=== PATIENT | female | born 1950 | race Caucasian/White ===

== ENCOUNTER 2022-12-31 17:44 | Inpatient (IN) | payer OTHER ==
[~2022-12-31] VITALS: Ht 172.7 cm; Wt 77.1 kg
[2022-12-31] MEDS ORDERED: IPRATROPIUM NEB FS 0.5 MG/2.5 ML AMPUL.NEB ONE (17:58)
[2022-12-31] MEDS ORDERED: ALBUTEROL FS 2.5 MG/3 ML VIAL.NEB ONE (17:58)
[2022-12-31] MEDS ORDERED: Magnesium 1GM/D5W 100ML PREMIX 200 ML IV ONE (18:00)
[2022-12-31] MEDS ORDERED: ALBUTEROL FS 2.5 MG/3 ML VIAL.NEB CONTNEB ONE (18:00)
[2022-12-31] MEDS ORDERED: methylPREDNISolone SOD SUCC 125 MG/2ML VIAL IV ONE (18:00)
[2022-12-31] MEDS ORDERED: IPRATROPIUM NEB FS 0.5 MG/2.5 ML AMPUL.NEB NEB ONE (18:00)
--- NOTE | 2022-12-31 18:00 | NUR ---
[id number] FOR SOB. 85% 2LNC ON SCENE, 95% 15L NRB ON ARRIVAL. PLACED IN BED, NON VERBAL, DYSPNEIC RR- 30 SATURATING AT 97% WITH 15LIT O2 NRB.
--- NOTE | 2022-12-31 18:04 | NUR ---
RESP. TECH AT BEDSIDE
--- NOTE | 2022-12-31 18:05 | NUR ---
TECH AT BEDSIDE FOR EKG
[2022-12-31] MEDS ORDERED: ACET-868 PO (18:09)
[2022-12-31] MEDS ORDERED: LOSA25TA27 PO (18:09)
[2022-12-31] MEDS ORDERED: FLUT1BLS6 INH (18:09)
[2022-12-31] MEDS ORDERED: ENOX40DI SQ (18:09)
[2022-12-31] MEDS ORDERED: CRAN425C6 PO (18:09)
[2022-12-31] MEDS ORDERED: ATOR10TA PO (18:09)
[2022-12-31] MEDS ORDERED: CARV3.122 PO (18:09)
[2022-12-31] MEDS ORDERED: ESTR42.5 VG (18:09)
[2022-12-31] MEDS ORDERED: ONDA4TAB5 PO (18:09)
[2022-12-31] MEDS ORDERED: BISA10SU11 RC (18:09)
[2022-12-31] MEDS ORDERED: NA P133E RC (18:09)
[2022-12-31] MEDS ORDERED: MAGN400O6 PO (18:09)
[2022-12-31] MEDS ORDERED: HYDR-3980 PO (18:09)
[2022-12-31] MEDS ORDERED: IPRA3AMP23 IH (18:09)
[2022-12-31] MEDS ORDERED: ASPI-1420 PO (18:09)
[2022-12-31] MEDS ORDERED: LIDO1ADH82 TP (18:09)
[2022-12-31] MEDS ORDERED: DOCU-141 PO (18:09)
[2022-12-31] MEDS ORDERED: Magnesium 1GM/D5W 100ML PREMIX 100 ML IV ONE ×2 (18:12→19:23)
[2022-12-31] MEDS ORDERED: methylPREDNISolone SOD SUCC 125 MG/2ML VIAL ONE (18:12)
--- NOTE | 2022-12-31 18:15 | NUR ---
pharmaceutical laboratory technician at bedside
[2022-12-31] MEDS ORDERED: ACETAMINOPHEN 650 MG/SUPP.RECT RC ONE ×2 (18:28→18:30)
[2022-12-31 18:59] LABS: ABG BASE EXCESS 0.2 mmol/L; ABG PCO2 177.3 mmHg (35.0-45.0); ABG PH 6.945 (7.350-7.450); ABG PO2 65.9 mmHg (75.0-100.0); COHb 3.3 % (0.5-1.5); MetHb 0.3 % (0.0-1.5); O2Hb 76.4 % (94.0-97.0); SITE, ABG Left Radial
--- NOTE | 2022-12-31 19:01 | NUR ---
swab for covid19 and rapid influenza sen to lab
[2022-12-31] MEDS ORDERED: PROPOFOL 100 ML ONE (19:04)
--- NOTE | 2022-12-31 19:09 | NUR ---
PATIENT INTUBATED BY MD WITH DIPRIVAN 100MG IV, ET-TUBE 7.5 AT 23LIP ATTACHED TO VENTILATOR WITH SETTING AC/VC FIO2- 100, VT- 550, RATE- 20, PEEP- 5 SATURATING AT 100%.
[2022-12-31] MEDS ORDERED: PROPOFOL 100 ML IV ONE (19:30)
[2022-12-31] MEDS ORDERED: PROPOFOL 200 MG/20 ML VIAL IV ONE (19:30)
[2022-12-31 19:47] LABS: CARBON DIOXIDE 32 mmol/L (21-32); CHLORIDE 99 mmol/L (98-107); GLUCOSE 194 mg/dL (74-106); POTASSIUM 4.6 mmol/L (3.5-5.1); SODIUM SERUM 135 mmol/L (136-145)
[2022-12-31 19:48] LABS: ALKALINE PHOSPHATASE 80 U/L (46-116); ASPARTATE AMINOTRANSFERASE 5 U/L (15-37); BILIRUBIN,DIRECT 0.1 mg/dL (0.0-0.2); BILIRUBIN,TOTAL 0.2 mg/dL (0.2-1.0); CALCIUM, SERUM 9.9 mg/dL (8.5-10.1); CREATININE 0.9 mg/dL (0.6-1.3); UREA NITROGEN, BLOOD 18 mg/dL (7-18)
[2022-12-31 19:49] LABS: ALANINE AMINOTRANSFERASE 27 U/L (12-78); ALBUMIN 3.3 g/dL (3.4-5.0)
[2022-12-31 19:59] LABS: BILIRUBIN,URINE NEGATIVE (NEGATIVE); COLOR,URINE YELLOW (YELLOW); LEUKOCYTE ESTERASE ,URINE 2+ (NEGATIVE); NITRITE, URINE NEGATIVE (NEGATIVE); PH,URINE 5.5 (5.0-8.0); PROTEIN,URINE 2+ mg/dl (NEGATIVE); UGLUCOSE NEGATIVE (NEGATIVE); UROBILINOGEN,URINE 0.2 EU/dL (0.2)
[2022-12-31] MEDS ORDERED: IV NS 0.9% 1,000 ML BAG IV ONE ×2 (20:00→20:30)
--- NOTE | 2022-12-31 20:00 | NUR ---
BED 255
[2022-12-31 20:07] LABS: BASOPHILS % (AUTO) 0.2 % (0.0-2.0); EOSINOPHILS % (AUTO) 1.3 % (0.0-6.0); HEMATOCRIT 42 % (33-45); HEMOGLOBIN 13.5 g/dL (11.5-14.8); LYMPHOCYTES # (AUTO) 4.3 K/uL (0.8-4.8); LYMPHOCYTES % (AUTO) 26.6 % (20.0-44.0); MEAN CORPUSCULAR HGB CONC 32 g/dl (31.0-36.0); MEAN CORPUSCULAR VOLUME 91 fL (82-100); MONOCYTES # (AUTO) 1.9 K/uL (0.1-1.30); MONOCYTES % (AUTO) 11.7 % (2.0-12.0); NEUTROPHILS # (AUTO) 9.8 K/uL (1.8-8.9); NEUTROPHILS % (AUTO) 60.2 % (43.0-81.0); PLATELET COUNT (AUTO) 384 K/uL (150-450); RED BLOOD CELL COUNT(AUTO) 4.58 MIL/uL (4.0-5.2); WHITE BLOOD COUNT (AUTO) 16.3 K/uL (4.3-11.0)
[2022-12-31 20:26] LABS: BACTERIA,URINE 3+ /HPF (None Seen); RBC,URINE 81-100 /HPF (0-2); SQUAMOUS EPITHELIAL CELL,UR 0-2 /HPF (None Seen); WBC,URINE 51-80 /HPF (0-3)
[2022-12-31 20:27] LABS: URINE AMORPHOUS URATE Many /HPF (None Seen)
[2022-12-31 20:31] LABS: TOTAL PROTEIN, SERUM 8.4 g/dL (6.4-8.2)
--- NOTE | 2022-12-31 20:49 | NUR ---
PAGED DR FELICIANO
--- NOTE | 2022-12-31 20:52 | NUR ---
DR ROYAL ON THE PHONE W DR FELICIANO
[2022-12-31 20:57] LABS: ABG BASE EXCESS -1.5 mmol/L; ABG PH 7.317 (7.350-7.450); ABG PO2 415.1 mmHg (75.0-100.0); COHb 2.2 % (0.5-1.5); MetHb 0.3 % (0.0-1.5); O2Hb 97.3 % (94.0-97.0); SITE, ABG Right Radial
--- NOTE | 2022-12-31 20:58 | NUR ---
PAGED ONCALL SOAKER MEAT
[2022-12-31] MEDS ORDERED: ALBUTEROL FS 2.5 MG/0.5 ML VIAL.NEB NEB PRN (21:00)
[2022-12-31] MEDS ORDERED: IPRATROPIUM NEB FS 0.5 MG/2.5 ML AMPUL.NEB NEB PRN (21:00)
[2022-12-31] MEDS ORDERED: ACETAMINOPHEN 325 MG TABLET PO PRN (21:00)
--- NOTE | 2022-12-31 21:04 | NUR ---
PAGED DANNOLOGIST ONCALL
[2022-12-31] MEDS ORDERED: NOREPINEPHRINE 8 MG in IV NS 0.9% 250 ML IV ONE (21:30)
[2022-12-31] MEDS ORDERED: Sodium Bicarbonate 50 MEQ in IV 1/2NS 1000 ML 1,000 ML IV PRN (21:30)
[2022-12-31] MEDS ORDERED: NOREPINEPHRINE 4 MG/4 ML AMPUL IV ONE (21:38)
--- NOTE | 2022-12-31 21:45 | NUR ---
COMMENCED ON LEVOPHED INF. AT 0.1MCG/KG/MIN BP- 83/57. DIPRIVAN INF. STOP
[2022-12-31] MEDS: ATORVASTATIN 10 MG TABLET PO SCH (22:00)
--- NOTE | 2022-12-31 22:00 | NUR ---
REPORT GIVEN TO ED CERTIFIED DRIVER EXAMINER ROOM 255 FOR MAGUI
[2022-12-31] MEDS ORDERED: SODIUM BICARBONATE SYR 50 MEQ/50 ML DISP.SYRIN ONE (22:01)
--- NOTE | 2022-12-31 22:09 | NUR ---
PT TRANSFERRING TO ICU ROOM 255 VIA ACLS PROTOCOL WITH RT
[2022-12-31] MEDS ORDERED: PIPERACILLIN /TAZOBACTAM 3.375 G VIAL IV ONE (22:49)
[2022-12-31] MEDS: PIPERACILLIN /TAZOBACTAM 3.375 G in IV D5W 50 ML IV SCH (22:52)
[2022-12-31] MEDS ORDERED: NOREPINEPHRINE 32 MG in IV NS 0.9% 218 ML IV PRN (23:00)
[2022-12-31] MEDS ORDERED: IV NS 0.9% 1,000 ML IV ONE (23:00)
[2022-12-31] MEDS: methylPREDNISolone SOD SUCC 40 MG/ML VIAL IV SCH (23:23)
[2022-12-31] MEDS ORDERED: ENOXAPARIN SODIUM 80 MG/0.8 ML DISP.SYRIN SQ ONE (23:30)
[2023-01-01] VITALS (83 sets, daily range): BP systolic 86–156; BP diastolic 40–111
[2023-01-01] MEDS: IV NS 0.9% 1,000 ML IV SCH ×3 (00:15→18:22)
[2023-01-01] MEDS: ALBUTEROL FS 2.5 MG/0.5 ML VIAL.NEB NEB SCH ×2 (01:04→07:34)
[2023-01-01] MEDS: IPRATROPIUM NEB FS 0.5 MG/2.5 ML AMPUL.NEB NEB SCH ×4 (01:04→23:25)
[2023-01-01] MEDS ORDERED: NOREPINEPHRINE 32 MG in IV NS 0.9% 218 ML IV PRN (01:15)
[2023-01-01] MEDS ORDERED: NOREPINEPHRINE 4 MG/4 ML AMPUL IV ONE (01:17)
[2023-01-01] MEDS: PROPOFOL 100 ML IV PRN ×4 (01:48→21:15)
[2023-01-01] MEDS ORDERED: PIPERACILLIN /TAZOBACTAM 3.375 G VIAL IV ONE (04:23)
[2023-01-01] MEDS: PIPERACILLIN /TAZOBACTAM 3.375 G in IV D5W 50 ML IV SCH ×4 (04:29→23:43)
[2023-01-01] MEDS: methylPREDNISolone SOD SUCC 40 MG/ML VIAL IV SCH ×3 (04:30→21:31)
[2023-01-01 04:31] LABS: BASOPHILS % (AUTO) 0.1 % (0.0-2.0); HEMATOCRIT 38 % (33-45); HEMOGLOBIN 12.3 g/dL (11.5-14.8); LYMPHOCYTES # (AUTO) 1.2 K/uL (0.8-4.8); LYMPHOCYTES % (AUTO) 7.7 % (20.0-44.0); MEAN CORPUSCULAR HGB CONC 33 g/dl (31.0-36.0); MEAN CORPUSCULAR VOLUME 91 fL (82-100); MONOCYTES # (AUTO) 0.5 K/uL (0.1-1.30); MONOCYTES % (AUTO) 3.3 % (2.0-12.0); NEUTROPHILS # (AUTO) 13.9 K/uL (1.8-8.9); NEUTROPHILS % (AUTO) 88.9 % (43.0-81.0); PLATELET COUNT (AUTO) 382 K/uL (150-450); WHITE BLOOD COUNT (AUTO) 15.7 K/uL (4.3-11.0)
[2023-01-01 04:42] LABS: ALBUMIN 2.7 g/dL (3.4-5.0); BILIRUBIN,TOTAL 0.3 mg/dL (0.2-1.0); POTASSIUM 3.6 mmol/L (3.5-5.1); TOTAL PROTEIN, SERUM 7.2 g/dL (6.4-8.2)
[2023-01-01] MEDS ORDERED: AMIODARONE 150 MG/3 ML VIAL IV ONE (04:55)
[2023-01-01] MEDS ORDERED: PHENYLEPHRINE 10 MG/ML VIAL ONE (04:57)
[2023-01-01] MEDS ORDERED: DIGOXIN INJ 0.5 MG/2 ML AMPUL IV ONE (05:00)
[2023-01-01] MEDS ORDERED: PHENYLEPHRINE 50 MG in IV NS 0.9% 245 ML IV PRN (05:00)
[2023-01-01] MEDS ORDERED: AMIODARONE 150 MG in IV D5W 100 ML IV ONE (05:00)
[2023-01-01] MEDS ORDERED: AMIODARONE 450 MG in IV D5W 241 ML IV PRN (05:00)
[2023-01-01 05:24] LABS: ABG BASE EXCESS -2.6 mmol/L; ABG OXYGEN SATURATION 96.7 % (92.0-98.5); ABG PCO2 42.7 mmHg (35.0-45.0); ABG PH 7.348 (7.350-7.450); ABG PO2 76.1 mmHg (75.0-100.0); AaDO2 232.4 mmHg; COHb 2.9 % (0.5-1.5); MetHb 0.2 % (0.0-1.5); O2Hb 93.7 % (94.0-97.0); SITE, ABG Right Radial
--- NOTE | 2023-01-01 06:00 | NUR ---
PT WAS ADMITTED FROM ER WITH DIAGNOSIS RESPIRATORY FAILURE, COPD EXACERBATION. PT IS INTUBATED & VENT. SETTING IS AC 20, TV 550, FIO2 50%, PEEP 5. PT WAS ON LEVOPHED DRIP, BUT BECAUSE PT WENT TO A.FIB. WITH RVR PER MD ORDER LEVOPHED DRIP WAS CHANGED TO AMAYA DRIP. ALSO STARTED AMIODARONE DRIP. RHYTHM CHANGED FROM UNCONTROLLED A. FIB. TO SR. F/C DRAINS SUFFICIENT AMT. OF CLOUDY URINE. NO BM. MEDICATED ORDERED. REPOSITIONED Q 2 H. MEDICATED ORDERED. WILL CONTINUE CLOSE MONITORING.
--- NOTE | 2023-01-01 07:36 | NUR ---
ATTEMPTED TO REACH PATIENTS NEXT OF KIN FOR CONSENT FOR PICC LINE INSERTION. NEXT OF KIN UNABLE TO BE REACHED AT THIS TIME. WILL HAVE PROVIDER SIGN INFORMED CONSENT FORM.
[2023-01-01] MEDS ORDERED: CARVEDILOL 3.125 MG TABLET PO SCH (09:00)
[2023-01-01] MEDS ORDERED: LOSARTAN POTASSIUM 25 MG TABLET PO SCH (09:00)
[2023-01-01] MEDS: ASPIRIN EC 81 MG TABLET.DR PO SCH (09:32)
[2023-01-01] MEDS: AMIODARONE HCL 200 MG TABLET NG SCH ×2 (09:32→21:31)
[2023-01-01] MEDS: ENOXAPARIN SODIUM 80 MG/0.8 ML DISP.SYRIN SQ SCH ×2 (09:37→21:32)
--- NOTE | 2023-01-01 10:15 | NUR ---
NASOGASTRIC TUBE INSERTED. LEFT NARE AT 50 CM ARCELIA. PLACEMENT CONFIRMED BY AUSCULTATION. RAMANA VALVE ATTACHED, CLAMPED FOR NOW.
--- NOTE | 2023-01-01 10:19 | NUR ---
PICC LINE INSERTED, AWAITING STAT CHEST X-RAY TO CONFIRM PLACEMENT
[2023-01-01] MEDS: LEVALBUTEROL HCL NEB 1.25 MG/0.5 ML VIAL.NEB NEB SCH ×2 (15:57→23:25)
--- NOTE | 2023-01-01 19:06 | NUR ---
HAND OFF REPORT GIVEN TO NIGHTSHIFT NURSE RR FOR CONTINUATION OF CARE.
[2023-01-01] MEDS: ATORVASTATIN 10 MG TABLET PO SCH (21:34)
--- NOTE | 2023-01-01 21:45 | NUR ---
LAB REPORTED CRITICAL VALUE TROPONIN [id number]. NOTIFIED
[2023-01-02] VITALS (77 sets, daily range): BP systolic 95–159; BP diastolic 45–89
[2023-01-02] MEDS: PROPOFOL 100 ML IV PRN ×7 (01:49→22:37)
--- NOTE | 2023-01-02 04:00 | NUR ---
DISLODGED IV AT LEFT WRIST, REMOVED. APPLIED PRESSURE DRESSING. NO BLEEDING.
[2023-01-02 04:20] LABS: BASOPHILS % (AUTO) 0.1 % (0.0-2.0); HEMATOCRIT 32 % (33-45); HEMOGLOBIN 10.4 g/dL (11.5-14.8); LYMPHOCYTES # (AUTO) 1.6 K/uL (0.8-4.8); LYMPHOCYTES % (AUTO) 11.1 % (20.0-44.0); MEAN CORPUSCULAR HGB CONC 33 g/dl (31.0-36.0); MEAN CORPUSCULAR VOLUME 89 fL (82-100); MONOCYTES # (AUTO) 1.1 K/uL (0.1-1.30); MONOCYTES % (AUTO) 7.4 % (2.0-12.0); NEUTROPHILS # (AUTO) 11.9 K/uL (1.8-8.9); NEUTROPHILS % (AUTO) 81.4 % (43.0-81.0); PLATELET COUNT (AUTO) 307 K/uL (150-450); RED BLOOD CELL COUNT(AUTO) 3.56 MIL/uL (4.0-5.2); WHITE BLOOD COUNT (AUTO) 14.7 K/uL (4.3-11.0)
[2023-01-02 04:29] LABS: CALCIUM, SERUM 8.4 mg/dL (8.5-10.1); CARBON DIOXIDE 26 mmol/L (21-32); CHLORIDE 109 mmol/L (98-107); CREATININE 0.7 mg/dL (0.6-1.3); GLUCOSE 155 mg/dL (74-106); POTASSIUM 3.7 mmol/L (3.5-5.1); SODIUM SERUM 143 mmol/L (136-145); UREA NITROGEN, BLOOD 22 mg/dL (7-18)
[2023-01-02 04:41] LABS: THYROID STIMULATING HORMONE 0.231 uIU/mL (0.358-3.74)
[2023-01-02] MEDS: IV NS 0.9% 1,000 ML IV SCH ×2 (04:59→15:11)
[2023-01-02] MEDS: methylPREDNISolone SOD SUCC 40 MG/ML VIAL IV SCH ×2 (05:29→16:04)
[2023-01-02] MEDS: PIPERACILLIN /TAZOBACTAM 3.375 G in IV D5W 50 ML IV SCH ×3 (05:30→18:58)
--- NOTE | 2023-01-02 05:30 | NUR ---
LATEST BP 120/65. HELD AMAYA AT THIS TIME. WILL CONTINUE TO MONITOR.
--- NOTE | 2023-01-02 07:05 | NUR ---
CHEMICAL INSPECTOR OPENING NOTE: RECEIVED PT. IN BED, INTUBATED AND SEDATED. MOVES EYELIDS WITH PAINFUL STIMULI. ETT - 7.5; AC - 20; VT - 500; FIO2 - 50%; PEEP - 5. NO S/S OF RESPIRATORY DISTRESS AT THIS TIME. COUNTER INSTALLER READS NSR AT THIS TIME. SKIN INTACT, MEPILEX APPLIED ON SACRUM FOR PROTECTION. HAS NG-TUBE IN THE L NARE, CLAMPED, NO GASTRIC RESIDUAL NOTED. ON GARCES CATHETER, WITH CLOUDY YELLOW URINE NOTED IN BAG. IV ACCESS ON HANNAH PICC, WITH DIPRIVAN RUNNING AT 50 MCG/KG/MIN; R WRIST #20G WITH NS RUNNING AT 100 ML/HR. IV SITE DRESSINGS C/D/I WITH NO S/S OF INFILTRATION NOTED. PT. ON SOFT BILATERAL WRIST RESTRAINTS, PALPABLE PULSES NOTED AND CAP REFILL < 3 SECS ON ALL EXTREMITIES. SAFETY MEASURES IN PLACE: BED IN LOWEST AND LOCKED POSITION, HOB ELEVATED AT 30 DEGREES, BED ALARM ON, CALL LIGHT WITHIN REACH, SIDE RAILS UP X2. WILL TURN AND REPOSITION IN BED AT LEAST Q2H. WILL CONTINUE TO MONITOR PT. FOR ANY CHANGES.
--- NOTE | 2023-01-02 08:40 | NUR ---
CREDIT REPORTER NOTE: PT. FAILED WEANING TRIAL. RESPIRATORY RATE WENT TO HIGH 40'S TO 50'S ON SIMV MODE, HR WENT TO HIGH 90'S AND BP INCREASED TO SBP OF 150'S-160'S. PT. WENT VISIBLY AGITATED WELL. PT. WAS PUT BACK ON SEDATION AND AC MODE. DR. LONG AWARE. WILL CONTINUE TO MONITOR PT.'S HEMODYNAMIC STATUS.
[2023-01-02] MEDS: IPRATROPIUM NEB FS 0.5 MG/2.5 ML AMPUL.NEB NEB SCH ×3 (09:06→23:49)
[2023-01-02] MEDS: LEVALBUTEROL HCL NEB 1.25 MG/0.5 ML VIAL.NEB NEB SCH ×3 (09:07→23:49)
[2023-01-02] MEDS: AMIODARONE HCL 200 MG TABLET NG SCH ×2 (09:34→20:49)
[2023-01-02] MEDS: ASPIRIN EC 81 MG TABLET.DR PO SCH (09:34)
[2023-01-02] MEDS: METOPROLOL TARTRATE 25 MG TABLET NG SCH ×2 (09:35→20:50)
[2023-01-02] MEDS: ENOXAPARIN SODIUM 80 MG/0.8 ML DISP.SYRIN SQ SCH ×2 (09:40→20:51)
--- NOTE | 2023-01-02 19:05 | NUR ---
CEO CLOSING NOTE: PT. REMAINS IN BED, INTUBATED AND SEDATED. MOVES EYELIDS WITH PAINFUL STIMULI. ETT - 7.5/; AC - 20; VT - 500; FIO2 - 40%; PEEP - 5. NO S/S OF RESPIRATORY DISTRESS AT THIS TIME. MANAGER CASE READS NSR AT THIS TIME. SKIN PROTECTION MEASURES APPLIED. NG-TUBE IN THE L NARE, CLAMPED, NO GASTRIC RESIDUAL NOTED. ADVANCED NGT PER CHEST XRAY RESULT THIS AM. NOW AT 70 CM AT THE L NARE. GARCES CATHETER DRAINED 300 ML CLOUDY YELLOW URINE THIS SHIFT. NO BM THIS SHIFT. IV ACCESS ON HANNAH PICC, WITH DIPRIVAN RUNNING AT 55 MCG/KG/MIN; R WRIST #20G WITH NS RUNNING AT 100 ML/HR. IV SITE DRESSINGS C/D/I WITH NO S/S OF INFILTRATION NOTED. PT. ON SOFT BILATERAL WRIST RESTRAINTS, PALPABLE PULSES NOTED AND CAP REFILL < 3 SECS ON ALL EXTREMITIES. SAFETY MEASURES MAINTAINED: BED IN LOWEST AND LOCKED POSITION, HOB ELEVATED AT 30 DEGREES, BED ALARM ON, CALL LIGHT WITHIN REACH, SIDE RAILS UP X2. TURNED AND REPOSITIONED IN BED AT LEAST Q2H. ENDORSED CONTINUITY OF CARE TO RELATIONS DIRECTOR RN RR.
--- NOTE | 2023-01-02 19:45 | NUR ---
CONTENT COORDINATOR RECEIVED PT INTUBATED, IN SEMI-FOWLERS POSITION, TOLERATING CURRENT VENT SETTING. FAILED WEANING THIS AM, WILL RE-ATTEMPT TOMORROW. SEDATED ON DIPRIVAN 55MCG/KG/MIN, WITH MD ORDERS. NG TUBE PLACEMENT ADVANCED, NOW AT 70CM. BILATERAL SOFT RESTRAINTS IN PLACED. CIRCULATION CHECKED AND RELEASED. SAFETY MEASURES MAINTAINED. WILL CONTINUE TO MONITOR.
[2023-01-02] MEDS: ATORVASTATIN 10 MG TABLET PO SCH (20:52)
[2023-01-02] MEDS: MUPIROCIN OINT 2% 22 GM TUBE NS SCH (20:52)
[2023-01-03] VITALS (60 sets, daily range): BP systolic 94–167; BP diastolic 49–90
[2023-01-03] MEDS: PIPERACILLIN /TAZOBACTAM 3.375 G in IV D5W 50 ML IV SCH ×5 (00:33→23:31)
[2023-01-03] MEDS: IV NS 0.9% 1,000 ML IV SCH (00:47)
[2023-01-03] MEDS: PROPOFOL 100 ML IV PRN (02:16)
[2023-01-03 04:23] LABS: BASOPHILS # (AUTO) 0.1 K/uL (0.0-0.2); BASOPHILS % (AUTO) 0.7 % (0.0-2.0); HEMATOCRIT 32 % (33-45); HEMOGLOBIN 10.5 g/dL (11.5-14.8); LYMPHOCYTES # (AUTO) 2.1 K/uL (0.8-4.8); LYMPHOCYTES % (AUTO) 16.3 % (20.0-44.0); MEAN CORPUSCULAR HGB CONC 32 g/dl (31.0-36.0); MEAN CORPUSCULAR VOLUME 90 fL (82-100); MONOCYTES # (AUTO) 1.3 K/uL (0.1-1.30); MONOCYTES % (AUTO) 9.9 % (2.0-12.0); NEUTROPHILS # (AUTO) 9.5 K/uL (1.8-8.9); NEUTROPHILS % (AUTO) 73.1 % (43.0-81.0); PLATELET COUNT (AUTO) 311 K/uL (150-450)
[2023-01-03 04:36] LABS: CALCIUM, SERUM 8.3 mg/dL (8.5-10.1); CARBON DIOXIDE 25 mmol/L (21-32); CHLORIDE 111 mmol/L (98-107); CREATININE 0.6 mg/dL (0.6-1.3); GLUCOSE 122 mg/dL (74-106); POTASSIUM 3.4 mmol/L (3.5-5.1); SODIUM SERUM 143 mmol/L (136-145); UREA NITROGEN, BLOOD 22 mg/dL (7-18)
[2023-01-03 05:05] LABS: IRON, SERUM 37 ug/dl (50-175); TOTAL IRON BINDING CAPACITY 176 ug/dl (250-450)
[2023-01-03] MEDS: methylPREDNISolone SOD SUCC 40 MG/ML VIAL IV SCH ×2 (05:07→18:33)
--- NOTE | 2023-01-03 07:05 | NUR ---
DEPARTURE CLERK OPENING NOTE: RECEIVED PT. IN BED, INTUBATED AND SEDATED. MOVES EYELIDS WITH PAINFUL STIMULI. ETT - 7.5; AC - 20; VT - 500; FIO2 - 40%; PEEP - 5. NO S/S OF RESPIRATORY DISTRESS AT THIS TIME. ANDROID FRAMEWORK DEVELOPER READS NSR AT THIS TIME. SKIN INTACT, MEPILEX APPLIED ON SACRUM FOR PROTECTION. HAS NG-TUBE IN THE L NARE, CLAMPED, NO GASTRIC RESIDUAL NOTED. ON GARCES CATHETER, WITH CLOUDY YELLOW URINE NOTED IN BAG. IV ACCESS ON HANNAH PICC, WITH DIPRIVAN RUNNING AT 55 MCG/KG/MIN; R WRIST #20G WITH NS RUNNING AT 100 ML/HR. IV SITE DRESSINGS C/D/I WITH NO S/S OF INFILTRATION NOTED. PT. ON SOFT BILATERAL WRIST RESTRAINTS, PALPABLE PULSES NOTED AND CAP REFILL < 3 SECS ON ALL EXTREMITIES. SAFETY MEASURES IN PLACE: BED IN LOWEST AND LOCKED POSITION, HOB ELEVATED AT 30 DEGREES, BED ALARM ON, CALL LIGHT WITHIN REACH, SIDE RAILS UP X2. WILL TURN AND REPOSITION IN BED AT LEAST Q2H. WILL CONTINUE TO MONITOR PT. FOR ANY CHANGES.
[2023-01-03] MEDS: IPRATROPIUM NEB FS 0.5 MG/2.5 ML AMPUL.NEB NEB SCH ×3 (07:41→23:18)
[2023-01-03] MEDS: LEVALBUTEROL HCL NEB 1.25 MG/0.5 ML VIAL.NEB NEB SCH ×3 (07:42→23:18)
[2023-01-03] MEDS ORDERED: DC PROPOFOL WHEN EXTUBATED XX PRN (08:00)
[2023-01-03] MEDS ORDERED: AMIODARONE HCL 200 MG TABLET NG SCH (09:00)
[2023-01-03] MEDS ORDERED: METOPROLOL TARTRATE 25 MG TABLET NG SCH (09:00)
[2023-01-03] MEDS ORDERED: POTASSIUM CHLORIDE 10 MEQ/50 ML PREMIXED IVPB FOR PERIPHERAL LINE IV ONE (09:00)
[2023-01-03 09:12] LABS: ABG BASE EXCESS -1.8 mmol/L; ABG OXYGEN SATURATION 97.7 % (92.0-98.5); ABG PCO2 34.4 mmHg (35.0-45.0); ABG PH 7.425 (7.350-7.450); ABG PO2 93.1 mmHg (75.0-100.0); AaDO2 152.5 mmHg; MetHb 0.1 % (0.0-1.5); O2Hb 95.6 % (94.0-97.0); PEEP,BG 5 cm H2O; SITE, ABG Left Radial; VT, ABG 500 mL
--- NOTE | 2023-01-03 09:35 | NUR ---
RT PATIENT WAS WEANED AND EXTUBATED PER DR CARDENAS ORDERS. PLACED ON 5L NC HALIMA WELL. AMBU BAG AT BEDSIDE. Addendum: 01/03/23 at 0937 by HAO COOMBS RT Amended: Links added.
[2023-01-03] MEDS: POTASSIUM CL. PREMIX PERIPHER. 50 ML IV SCH ×3 (10:22→14:07)
[2023-01-03] MEDS: SOTALOL HCL 80 MG TABLET PO SCH ×2 (10:23→21:06)
[2023-01-03] MEDS: LOSARTAN POTASSIUM 25 MG TABLET PO SCH (10:25)
[2023-01-03] MEDS: ASPIRIN EC 81 MG TABLET.DR PO SCH (10:25)
[2023-01-03] MEDS: ENOXAPARIN SODIUM 80 MG/0.8 ML DISP.SYRIN SQ SCH ×2 (10:26→21:08)
[2023-01-03] MEDS: MUPIROCIN OINT 2% 22 GM TUBE NS SCH ×2 (10:29→21:07)
[2023-01-03] MEDS: HYDROCODONE/APAP 10/325MG TABLET PO PRN (12:00)
[2023-01-03] MEDS ORDERED: ONDANSETRON HCL/PF 4 MG/2 ML VIAL IV PRN (12:00)
--- NOTE | 2023-01-03 13:00 | NUR ---
EDUCATIONAL INTERPRETER NOTE: SWALLOW EVAL DONE BY ST AND RECOMMENDED SOFT DIET. PT. ABLE TO TAKE MEDS, CRUSHED AND WITH APPLE SAUCE WITH NO S/S OF ASPIRATION. SPEECH THERAPIST AWARE. WILL CONTINUE TO MONITOR FOR S/S OF ASPIRATION AND WILL COORDINATE WITH DIETITIAN FOR DIET RECOMMENDATION.
--- NOTE | 2023-01-03 13:05 | NUR ---
MANAGER CLIENT NOTE: PT. COMPLAINED OF 7/10 ACHING PAIN IN L LEG. NORCO 10/325 GIVEN. PT. VERBALIZED PAIN RELIEF NOW. WILL CONTINUE TO MONITOR PT.'S PAIN.
--- NOTE | 2023-01-03 19:05 | NUR ---
ASSOCIATE PROFESSOR PHYSICIAN CLOSING NOTE: PT. REMAINS IN BED, AWAKE, AOX3-4. NO COMPLAINTS OF PAIN/DISCOMFORT AT THIS TIME. ON O2 VIA NASAL CANNULA AT 3L/MIN. NO S/S OF RESPIRATORY DISTRESS AT THIS TIME. MOLD PRESSER READS NSR AT THIS TIME. SKIN PROTECTION MEASURES APPLIED. GARCES CATHETER DRAINED 700 ML CLOUDY YELLOW URINE THIS SHIFT. IV ACCESS ON HANNAH PICC, WITH NS TKO; R WRIST #20G PATENT AND SALINE LOCKED. IV SITE DRESSINGS C/D/I WITH NO S/S OF INFILTRATION NOTED. SAFETY MEASURES MAINTAINED: BED IN LOWEST AND LOCKED POSITION, HOB ELEVATED AT 30 DEGREES, BED ALARM ON, CALL LIGHT WITHIN REACH, SIDE RAILS UP X2. TURNED AND REPOSITIONED IN BED AT LEAST Q2H. ENDORSED CONTINUITY OF CARE TO INSTRUMENT MECHANICS SUPERVISOR SHAYLA VIVEROS.
--- NOTE | 2023-01-03 20:00 | NUR ---
Received patient a/ox4.VS stable.SR.Respiration even and unlabored.Extubated this morning.On O2 3LNC saturation 94%-95%.Cough at times and able to self suction secretions.Patient with good oral intake with puree diet.Aspiration precaution maintained.FC to gravity.NS at TKO infusing to R arm SL.Site intact.Turned and repositioned to comfort off loading pressure points.Continue to monitor.Safety measures implemented.Calll light at bedside.
[2023-01-03] MEDS: ATORVASTATIN 10 MG TABLET PO SCH (21:08)
[2023-01-03] MEDS: HYDROCODONE/APAP 5/325MG TABLET PO PRN (21:25)
[2023-01-04] VITALS (19 sets, daily range): BP systolic 91–144; BP diastolic 46–91
[2023-01-04] MEDS: HYDROCODONE/APAP 5/325MG TABLET PO PRN ×2 (02:12→21:30)
[2023-01-04 05:06] LABS: CALCIUM, SERUM 8.2 mg/dL (8.5-10.1); CREATININE 0.7 mg/dL (0.6-1.3)
[2023-01-04] MEDS: methylPREDNISolone SOD SUCC 40 MG/ML VIAL IV SCH (05:08)
[2023-01-04] MEDS: PIPERACILLIN /TAZOBACTAM 3.375 G in IV D5W 50 ML IV SCH ×3 (05:08→18:01)
--- NOTE | 2023-01-04 06:25 | NUR ---
Patient resting in no acute distress.VS remains stable.SR.Hemodynamically stable.Respiration even and unlabored.With O2 3L NC.Saturation 94%-99%.Patient with multiple request .All needs attended.AM care done.Turned and repositioned.No significant change noted during the shift. Kept comfortable.Call light at bedside.
--- NOTE | 2023-01-04 07:15 | NUR ---
RN Note Received patient in bed, alert and conscious without active complaint. recruiting specialist showed SR HR 60/min. BP WNL. SpO2 96% with 3L oxygen via NC. Right PICC is patent with TKO running at 10mL/hr, site is dry and intact. Call holt is placed within reach. Bed is locked and placed in the lowest position. Will continue montioring and care.
[2023-01-04] MEDS: IPRATROPIUM NEB FS 0.5 MG/2.5 ML AMPUL.NEB NEB SCH ×3 (07:23→23:26)
[2023-01-04] MEDS: LEVALBUTEROL HCL NEB 1.25 MG/0.5 ML VIAL.NEB NEB SCH ×3 (07:23→23:26)
[2023-01-04] MEDS: MUPIROCIN OINT 2% 22 GM TUBE NS SCH ×2 (08:46→21:00)
[2023-01-04] MEDS: SOTALOL HCL 80 MG TABLET PO SCH ×2 (08:46→21:00)
[2023-01-04] MEDS: LOSARTAN POTASSIUM 25 MG TABLET PO SCH (08:47)
[2023-01-04] MEDS: ASPIRIN EC 81 MG TABLET.DR PO SCH (08:47)
[2023-01-04] MEDS: ENOXAPARIN SODIUM 80 MG/0.8 ML DISP.SYRIN SQ SCH ×2 (08:50→21:31)
--- NOTE | 2023-01-04 11:35 | NUR ---
RN NOTE- TRANSFER FROM ICU. PT W COPD EXACERBATION. STABILIZED/ MEDICALLY CLEARED. AOX4, INTERACTIVE. NEEDS ATTENDED, ON 2LPM VIA NC. NO SOB. BEGIN ASSESSMENT.
--- NOTE | 2023-01-04 11:47 | NUR ---
RN note Patient's condition has stabilized and was transferred to telemetry unit. classroom monitor showed SR HR 65/min all along, SpO2 95% with 2L oxygen via NC. No active complaint. Handover is given to SHAYLA Waterman.
--- NOTE | 2023-01-04 11:48 | NUR ---
RN NOTE- PT HERE FROM ICU FOR EXACERBATION COPD. PT AOX4, DOESN'T RECALL EVENTS "WOKE UP IN ICU",. VS - BP- 116/62, HR- SR 66 TELE, RR-18, CLEAR TO AUSCULTATION, NO RHONCHI, NO RALES, T- 98.1, O2 SATS 99% ON 2LPM VIA NC, EATING LUNCH IN BED. DENIES PAIN. SAFETY MEASURES IN PLACE .MONITOR / ASSIST
[2023-01-04] MEDS: HYDROCODONE/APAP 10/325MG TABLET PO PRN ×2 (13:00→17:16)
--- NOTE | 2023-01-04 18:34 | NUR ---
RN CLOSING NOTE- PT AOX4, INTERACTIVE, NEEDS ATTENDED, GENERALIZED PAIN DECREASED W NORCO. PO INTAKE FAIR, TELE MONITOR SR AT 68. FOR CTA TOMORROW. CONSENTS COMPLETED. SIDE RAILS UP, CALL LIGHT IN REACH. MONITOR / ASSIST
--- NOTE | 2023-01-04 19:54 | NUR ---
FIRE PROTECTION ENGINEERING TECHNICIAN OPENING NOTES: RECEIVED PATIENT AWAKE IN BED, BED IN LOW POSITION CALL LIGHTS WITHIN REACH, NO COMPLAIN OF PAIN AND DISCOMFORT AT THIS TIME, ON O2 INHALATION AT 2LPM SATURATING WELL, PATIENT IS A/OX4 ABLE TO MAKE NEEDS KNOWN, ON TELE MONITOR- [id number] NO SYMPTOMS WAS OBSERVED, PATIENT WITH HANNAH ML/SL, ON GARCES CATHETER-50CC URINE OUTPUT, PATIENT KEPT CLEAN AND DRY ALL NEEDS MET WILL CONTINUE TO MONITOR.
[2023-01-04] MEDS: ATORVASTATIN 10 MG TABLET PO SCH (21:29)
--- NOTE | 2023-01-04 21:30 | NUR ---
RN NOTES: BACTROBAN NOT GIVEN MEDICINE NOT AVAILABLE.
--- NOTE | 2023-01-04 21:52 | NUR ---
RN NOTES: SOTOLOL NOT GIVEN, BRADYCARDIA AT 56
[2023-01-05] VITALS (8 sets, daily range): BP systolic 100–159; BP diastolic 49–60
[2023-01-05] MEDS: PIPERACILLIN /TAZOBACTAM 3.375 G in IV D5W 50 ML IV SCH ×5 (00:36→23:44)
[2023-01-05] MEDS: HYDROMORPHONE 1 MG/1 ML DISP.SYRIN IV PRN ×3 (02:10→18:05)
[2023-01-05 05:52] LABS: BASOPHILS % (AUTO) 0.4 % (0.0-2.0); EOSINOPHILS % (AUTO) 2.7 % (0.0-6.0); HEMATOCRIT 31 % (33-45); HEMOGLOBIN 9.9 g/dL (11.5-14.8); LYMPHOCYTES # (AUTO) 3.8 K/uL (0.8-4.8); LYMPHOCYTES % (AUTO) 36.8 % (20.0-44.0); MEAN CORPUSCULAR HGB CONC 33 g/dl (31.0-36.0); MEAN CORPUSCULAR VOLUME 91 fL (82-100); MONOCYTES # (AUTO) 1.3 K/uL (0.1-1.30); MONOCYTES % (AUTO) 12.2 % (2.0-12.0); NEUTROPHILS # (AUTO) 4.9 K/uL (1.8-8.9); NEUTROPHILS % (AUTO) 47.9 % (43.0-81.0); PLATELET COUNT (AUTO) 297 K/uL (150-450); RED BLOOD CELL COUNT(AUTO) 3.36 MIL/uL (4.0-5.2); WHITE BLOOD COUNT (AUTO) 10.2 K/uL (4.3-11.0)
[2023-01-05 06:12] LABS: CALCIUM, SERUM 8.5 mg/dL (8.5-10.1); CREATININE 0.6 mg/dL (0.6-1.3); POTASSIUM 3.7 mmol/L (3.5-5.1)
--- NOTE | 2023-01-05 07:12 | NUR ---
PROJECT CONSTRUCTION ASSISTANT MANAGER CLOSING NOTES; PATIENT SLEEP IN BED COMFORTABLY, AROUSABLE TO VERBAL STIMULI, BE IN LOW POSITION CALL LIGHTS WITHIN REACH, NO COMPLAIN OF PAIN AND DISCOMFORT AT THIS TIME , ON PAIN MANAGEMENT, REPOSITION, ON TELE MONITOR- SB56, PATIENT KEPT CLEAN AND DRY ALL NEEDS MET ENDORSE TO INCOMING SHIFT.
--- NOTE | 2023-01-05 07:59 | NUR ---
RN OPENING NOTE PATIENT AWAKE IN BED RESTING, A/O X 4. NO S/S OF PAIN NOTED AT THIS TIME. ON ROOM AIR, BREATHING EVEN UNLABORED, NO DISTRESS OR SHORTNESS OF BREATH NOTED AT THIS TIME. IV ACCESS HANNAH MIDLINE, INTACT PATENT AND FLUSHING WELL. PATIENT HAVE A GARCES CATHETER IN PLACE AND DRAINING WELL. PATIENT WITH EXTERNAL MOLDED GRID AND PARTS INSPECTOR WITH CURRENT READING OF SR AND HR OF 56. FALL AND SAFETY MEASURES IN PLACE, BED ALARM ON, BED IN LOW AND LOCK POSITION, CALL LIGHT AND TABLE WITHIN EASY REACH, SIDE RAILS UP X2. WILL CONTINUE TO MONITOR.
[2023-01-05] MEDS: ASPIRIN EC 81 MG TABLET.DR PO SCH (08:13)
[2023-01-05] MEDS: SOTALOL HCL 80 MG TABLET PO SCH ×2 (08:14→21:00)
[2023-01-05] MEDS: APIXABAN 5 MG TABLET PO SCH ×2 (08:15→17:54)
[2023-01-05] MEDS: LOSARTAN POTASSIUM 25 MG TABLET PO SCH (08:15)
[2023-01-05] MEDS: LEVALBUTEROL HCL NEB 1.25 MG/0.5 ML VIAL.NEB NEB SCH ×3 (08:28→14:57)
[2023-01-05] MEDS: IPRATROPIUM NEB FS 0.5 MG/2.5 ML AMPUL.NEB NEB SCH ×3 (08:28→14:57)
[2023-01-05] MEDS ORDERED: methylPREDNISolone SOD SUCC 40 MG/ML VIAL IV SCH (09:00)
[2023-01-05] MEDS: predniSONE 5 MG TABLET PO SCH (09:53)
[2023-01-05] MEDS: MUPIROCIN OINT 2% 22 GM TUBE NS SCH ×2 (10:46→21:15)
[2023-01-05] MEDS ORDERED: IOHEXOL-350 100 ML VIAL IV ONE (12:22)
[2023-01-05] MEDS ORDERED: IV NS 0.9% 250 ML IV ONE (12:22)
--- NOTE | 2023-01-05 12:54 | NUR ---
RN NOTES CTCA PROCEDURE WELL TOLERATED BY THE PT. PT IS AAOX3, NOT IN RESPIRATORY DISTRESS, V/S STABLE, KEPT RESTED AND COMFORTABLE. REPORT GIVEN TO SHAYLA STANFORD FOR MAGUI.
[2023-01-05] MEDS: HYDROCODONE/APAP 10/325MG TABLET PO PRN (14:20)
--- NOTE | 2023-01-05 15:39 | NUR ---
SS consult: SS consult requested for Advanced Directive. CULLEN met with pt. at bedside. The pt. is a 72 year old female who is currently admitted to Med surg for shortness of breath. Per EMR, the pt. has Hx. of HTN, Hyperlipidemia, COPD, DJD and frequently falls. CULLEN met with pt. at bedside. The pt. is alert & oriented x 4 and makes good eye contact. The pt. appears well-groomed with euthymic mood & affect. The pt. has soft slow speech and normal thought process. The pt. states she was last residing at [place] [address] and doesn't remember what happened but she woke up and was at [facility]. Pt. sated the MD explained she has SOB. Pt. states she was originally living at home alone with her 2 dogs but was having frequent fall nd unable to get up so she went to a SNF after that. Per pt. she is not and has no children or next of kin. Pt. states she is interested in completing an advanced directive and would like to have her friend, Leon Patton [phone] be her DPOA. CULLEN provided pt. with advanced healthcare directive. informational sheet and mobile notary information. Pt. states she is very familiar with these documents as she worked as a public notary herself. Pt. states she will complete the document and have it notarized. CULLEN addressed the pt.'s questions. DC PLAN: Per CM note the pt. will return to [place] [address] when medically cleared.
--- NOTE | 2023-01-05 18:33 | NUR ---
RN CLOSING NOTE PATIENT AWAKE IN BED RESTING, A/O X 4. NO S/S OF PAIN NOTED AT THIS TIME. ON 2L OXYGEN VIA NC, BREATHING EVEN UNLABORED, NO DISTRESS OR SHORTNESS OF BREATH NOTED AT THIS TIME. IV ACCESS HANNAH MIDLINE, INTACT PATENT AND FLUSHING WELL. PATIENT HAVE A GARCES CATHETER IN PLACE AND DRAINING WELL, OUTPUT 900ML, YELLOW URINE. PATIENT WITH EXTERNAL ORACLE APEX DEVELOPER WITH CURRENT READING OF SR AND HR OF 62. SCHEDULE MEDICATIONS ADMINISTERED. SKIN CARE PROVIDED. PATIENT WAS TURNED AND REPOSITIONED PER PROTOCOL. FALL AND SAFETY MEASURES IN PLACE, BED ALARM ON, BED IN LOW AND LOCK POSITION, CALL LIGHT AND TABLE WITHIN EASY REACH, SIDE RAILS UP X2. ALL NEEDS ATTENDED AND ANTICIPATED. WILL ENDORSE TO SLUBBER OPERATOR NURSE.
[2023-01-05] MEDS: ATORVASTATIN 10 MG TABLET PO SCH (21:20)
[2023-01-06] VITALS: BP 114/55
[2023-01-06] MEDS: LEVALBUTEROL HCL NEB 1.25 MG/0.5 ML VIAL.NEB NEB SCH ×3 (00:16→08:08)
[2023-01-06] MEDS: IPRATROPIUM NEB FS 0.5 MG/2.5 ML AMPUL.NEB NEB SCH ×3 (00:16→08:08)
[2023-01-06] MEDS: HYDROCODONE/APAP 10/325MG TABLET PO PRN ×3 (00:22→11:27)
[2023-01-06 04:00] VITALS: BP 105/60
[2023-01-06] MEDS: PIPERACILLIN /TAZOBACTAM 3.375 G in IV D5W 50 ML IV SCH (05:22)
--- NOTE | 2023-01-06 05:32 | NUR ---
ha briggs given for pain 05/28 tolerated well. Addendum: 01/06/23 at 0533 by NICOLE GUZMAN RN wrong pt
[2023-01-06 05:48] LABS: BASOPHILS % (AUTO) 0.4 % (0.0-2.0); EOSINOPHILS % (AUTO) 7.9 % (0.0-6.0); HEMATOCRIT 31 % (33-45); HEMOGLOBIN 9.9 g/dL (11.5-14.8); LYMPHOCYTES % (AUTO) 30.9 % (20.0-44.0); MEAN CORPUSCULAR HGB CONC 32 g/dl (31.0-36.0); MEAN CORPUSCULAR VOLUME 91 fL (82-100); MONOCYTES # (AUTO) 1.1 K/uL (0.1-1.30); MONOCYTES % (AUTO) 11.6 % (2.0-12.0); NEUTROPHILS # (AUTO) 4.7 K/uL (1.8-8.9); NEUTROPHILS % (AUTO) 49.2 % (43.0-81.0); PLATELET COUNT (AUTO) 287 K/uL (150-450); RED BLOOD CELL COUNT(AUTO) 3.39 MIL/uL (4.0-5.2); WHITE BLOOD COUNT (AUTO) 9.6 K/uL (4.3-11.0)
[2023-01-06 06:15] LABS: CALCIUM, SERUM 8.3 mg/dL (8.5-10.1); CARBON DIOXIDE 35 mmol/L (21-32); CHLORIDE 104 mmol/L (98-107); CREATININE 0.5 mg/dL (0.6-1.3); GLUCOSE 83 mg/dL (74-106); POTASSIUM 3.6 mmol/L (3.5-5.1); SODIUM SERUM 142 mmol/L (136-145); UREA NITROGEN, BLOOD 8 mg/dL (7-18)
--- NOTE | 2023-01-06 06:51 | NUR ---
RN CLOSING NOTE PATIENT AWAKE IN BED RESTING, A/O X 4. NO S/S OF PAIN NOTED AT THIS TIME. ON 2L OXYGEN VIA NC, BREATHING EVEN UNLABORED, NO DISTRESS OR SHORTNESS OF BREATH NOTED AT THIS TIME. IV ACCESS HANNAH MIDLINE, INTACT PATENT AND FLUSHING WELL. PATIENT HAVE A GARCES CATHETER IN PLACE AND DRAINING WELL, OUTPUT 500ML, YELLOW URINE. PATIENT WITH EXTERNAL STUDENT OUTREACH COORDINATOR WITH CURRENT READING OF SR. SCHEDULE MEDICATIONS ADMINISTERED. SKIN CARE PROVIDED. PATIENT WAS TURNED AND REPOSITIONED PER PROTOCOL. FALL AND SAFETY MEASURES IN PLACE, BED ALARM ON, BED IN LOW AND LOCK POSITION, CALL LIGHT AND TABLE WITHIN EASY REACH, SIDE RAILS UP X2. ALL NEEDS ATTENDED AND ANTICIPATED. WILL ENDORSE TO DAY SHIFT NURSE.
--- NOTE | 2023-01-06 08:08 | NUR ---
RT NOTE: PATIENT AGREED TO XOPENEX AND ATROVENT HHN TREATMENT, THEN CHANGED HER MIND AND REFUSED IT. MEDICATION WAS DISCARDED AND PATIENT KNOWS TO CALL IF SHE NEEDS A TREATMENT. RESPIRATIONS ARE EVEN AND UNLABORED. WILL CONTINUE TO MONITOR.
[2023-01-06] MEDS: MUPIROCIN OINT 2% 22 GM TUBE NS SCH (08:47)
[2023-01-06] MEDS: predniSONE 5 MG TABLET PO SCH (08:48)
[2023-01-06] MEDS: ASPIRIN EC 81 MG TABLET.DR PO SCH (08:48)
[2023-01-06 08:50] VITALS: BP 155/77
[2023-01-06] MEDS: SOTALOL HCL 80 MG TABLET PO SCH (08:50)
[2023-01-06] MEDS: LOSARTAN POTASSIUM 25 MG TABLET PO SCH (08:50)
[2023-01-06] MEDS: APIXABAN 5 MG TABLET PO SCH (08:51)
[2023-01-06] MEDS ORDERED: VANCOMYCIN 1.25 GM in IV D5W 250 ML IV ONE (09:00)
--- NOTE | 2023-01-06 11:50 | NUR ---
PATIENT IS A/O X3, SATURATING WELL ON 1 LPM VIA NC. NO SOB REPORTED. PICC LINE TO BE KEPT FOR CONTINUATION OF ABX. GARCES CATHETER DRAINING WELL TO GRAVITY, ADEQUATE OUTPUT. DISCHARGE INSTRUCTIONS AND HEALTH TEACHINGS GIVEN, PT VERBALIZED UNDERSTANDING. PATIENT IS GOING TO [facility]. REPORT GIVEN TO HERBERT AT 1145 FOR CONTINUITY OF CARE. ESTIMATED PELLETISING EXTRUDER OPERATOR TIME AT 1200 VIA AMBULANCE. Addendum: 01/06/23 at 1215 by HUBERT POPE RN RN NOTE GARCES REMOVED. VOIDING WELL.
[2023-01-07] MEDS ORDERED: VANCOMYCIN 1 GM in IV D5W 250 ML IV SCH (09:00)
== END 2023-01-06 12:30 | DRG 871 ==
LOC: ER 17:49 → ICU 20:45 → TELE 01-04 11:34 → MED 01-06 12:07
PROVIDERS: ADMIT Internal Medicine; ATTEND Internal Medicine
PROC: 0BH18EZ Insertion of Endotracheal Airway into Trachea, Via Natural or Artificial Opening Endoscopic (ICD-10-PCS; principal; 2022-12-31)
PROC: 5A1945Z Respiratory Ventilation, 24-96 Consecutive Hours (ICD-10-PCS; 2022-12-31)
PROC: 02HV33Z Insertion of Infusion Device into Superior Vena Cava, Percutaneous Approach (ICD-10-PCS; 2023-01-01)
PROC: B548ZZA Ultrasonography of Superior Vena Cava, Guidance (ICD-10-PCS; 2023-01-01)
DX: A41.9 Sepsis, unspecified organism (principal); I21.A1 Myocardial infarction type 2; J96.01 Acute respiratory failure with hypoxia; J96.02 Acute respiratory failure with hypercapnia; N39.0 Urinary tract infection, site not specified; J44.1 Chronic obstructive pulmonary disease with (acute) exacerbation; E87.29 Other acidosis; M84.451A Pathological fracture, right femur, initial encounter for fracture; J98.11 Atelectasis; J81.1 Chronic pulmonary edema; E78.5 Hyperlipidemia, unspecified; I10 Essential (primary) hypertension; R29.6 Repeated falls; Z79.82 Long term (current) use of aspirin; Z79.899 Other long term (current) drug therapy; M19.90 Unspecified osteoarthritis, unspecified site; Z79.51 Long term (current) use of inhaled steroids; Z79.01 Long term (current) use of anticoagulants; I48.0 Paroxysmal atrial fibrillation; E87.6 Hypokalemia; R94.6 Abnormal results of thyroid function studies; B95.2 Enterococcus as the cause of diseases classified elsewhere; Z87.81 Personal history of (healed) traumatic fracture; I25.10 Atherosclerotic heart disease of native coronary artery without angina pectoris; I70.0 Atherosclerosis of aorta
CPT/HCPCS: 31720; 36415; 36600; 71045-TC; 75574; 80048-TC; 80053-TC; 80076-TC; 81001; 82550-TC; 82803-TC; 83540-TC; 83605-TC; 83735-TC; 83880; 84439-TC; 84443-TC; 84480; 84484-TC; 85025-TC; 85730-TC; 87040-TC; 87081-TC; 87086-TC; 92526; 92611-TC; 93307-TC; 94002-TC; 94003-TC; 94799-TC; 97112-TC; 97530-TC; 99082-TC; A4223; C9803; G0378; J0282; J1160; J1170; J1650; J2370; J2543; J2920; J2930; J3370; J3475; J3480; J3490; J7030; J7050; J7060; J7512; Q9967

== ENCOUNTER 2024-12-15 18:42 | Inpatient (IN) | payer MEDICARE, OTHER ==
[~2024-12-15] VITALS: Ht 175.3 cm; Wt 83.3 kg
[~2024-12-15 18:42] MED LIST: ACET-868 PO; ASPI-1420 PO; ATOR10TA PO; BISA10SU11 RC; CARV3.122 PO; CRAN425C6 PO; DOCU-141 PO; ENOX40DI SQ; ESTR42.5 VG; FLUT1BLS6 INH; HYDR-3980 PO; IPRA3AMP23 IH; LIDO1ADH82 TP; LOSA25TA27 PO; MAGN400O6 PO; NA P133E RC; ONDA4TAB5 PO
[2024-12-15 20:13] LABS: BASOPHILS % (AUTO) 0.3 % (0.0-2.0); EOSINOPHILS % (AUTO) 0.1 % (0.0-6.0); HEMATOCRIT 35 % (33-45); HEMOGLOBIN 11.3 g/dL (11.5-14.8); LYMPHOCYTES # (AUTO) 1.5 K/uL (0.8-4.8); LYMPHOCYTES % (AUTO) 18.7 % (20.0-44.0); MEAN CORPUSCULAR HEMOGLOBIN 29 PG (26.0-33.0); MEAN CORPUSCULAR HGB CONC 32 g/dl (31.0-36.0); MEAN CORPUSCULAR VOLUME 91 fL (82-100); MONOCYTES # (AUTO) 1.1 K/uL (0.1-1.30); MONOCYTES % (AUTO) 13.7 % (2.0-12.0); NEUTROPHILS # (AUTO) 5.2 K/uL (1.8-8.9); NEUTROPHILS % (AUTO) 67.2 % (43.0-81.0); PLATELET COUNT (AUTO) 252 K/uL (150-450); RED BLOOD CELL COUNT(AUTO) 3.89 MIL/uL (4.0-5.2); RED CELL DISTRIBUTION WIDTH 14.6 % (11.5-15.0); WHITE BLOOD COUNT (AUTO) 7.8 K/uL (4.3-11.0)
[2024-12-15 20:25] LABS: INR 1.07 (0.91-1.10); PARTIAL THROMBOPLASTIN TIME 37.6 SEC (24.3-34.3); PROTHROMBIN TIME 11.3 SECS (9.2-11.1)
[2024-12-15 20:53] LABS: SERUM AMMONIA 21 umol/L (11-32)
[2024-12-15 20:54] LABS: CALCIUM, SERUM 8.4 mg/dL (8.5-10.1); CHLORIDE 100 mmol/L (98-107); CREATININE 0.8 mg/dL (0.6-1.3); GLUCOSE 152 mg/dL (74-106); POTASSIUM 4.9 mmol/L (3.5-5.1); SODIUM SERUM 140 mmol/L (136-145); UREA NITROGEN, BLOOD 25 mg/dL (7-18)
[2024-12-15 21:08] LABS: ALANINE AMINOTRANSFERASE 25 U/L (12-78); ALBUMIN 3.1 g/dL (3.4-5.0); ALCOHOL, BLOOD < 3 mg/dL (0-10); ALKALINE PHOSPHATASE 56 U/L (46-116); ASPARTATE AMINOTRANSFERASE 28 U/L (15-37); BILIRUBIN,DIRECT 0.1 mg/dL (0.0-0.2); BILIRUBIN,TOTAL 0.3 mg/dL (0.2-1.0)
[2024-12-15 21:15] LABS: ACETAMINOPHEN <10 ug/ml (10-30); CARBON DIOXIDE 40 mmol/L (21-32)
[2024-12-15 21:22] LABS: APPEARANCE,URINE CLOUDY (CLEAR); BILIRUBIN,URINE 1+ (NEGATIVE); BLOOD, URINE 3+ Ery/uL (NEGATIVE); COLOR,URINE YELLOW (YELLOW); KETONES,URINE NEGATIVE (NEGATIVE); LEUKOCYTE ESTERASE ,URINE NEGATIVE (NEGATIVE); NITRITE, URINE POSITIVE (NEGATIVE); PH,URINE 5.5 (5.0-8.0); PROTEIN,URINE 2+ mg/dl (NEGATIVE); UGLUCOSE NEGATIVE (NEGATIVE)
[2024-12-15] MEDS ORDERED: PROPOFOL 100 ML ONE (21:29)
[2024-12-15] MEDS: ETOMIDATE 2 MG/ML VIAL IV ONE (21:32)
[2024-12-15] MEDS: ROCURONIUM BROMIDE 50 MG/5 ML IV ONE (21:32)
[2024-12-15 21:35] LABS: AMPHETAMINE, URINE NEGATIVE (NEGATIVE); BARBITURATE, URINE NEGATIVE (NEGATIVE); BENZODIAZEPINE, URINE NEGATIVE (NEGATIVE); CANNABINOID, URINE NEGATIVE (NEGATIVE); COCCAINE, URINE NEGATIVE (NEGATIVE); OPIATE, URINE NEGATIVE (NEGATIVE); PHENCYCLIDINE SCREEN,URINE NEGATIVE (NEGATIVE)
[2024-12-15 21:50] LABS: ADD URINE CULTURE YES; BACTERIA,URINE Few /HPF (None Seen); RBC,URINE TOO NUMEROUS TO COUN /HPF (0-2)
[2024-12-15] MEDS ORDERED: MAG HYDROX/AL HYDROX/SIMETH 30 ML UDC PO PRN (22:00)
[2024-12-15] MEDS ORDERED: Z GUARD REMEDY 4 OZ OINT TP PRN (22:00)
[2024-12-15] MEDS ORDERED: Medication Not On Formulary EA (Ipratropium/Albuterol Sulfate (Duoneb 2.5-0.5 Mg/3 Ml So IH PRN (22:00)
[2024-12-15] MEDS ORDERED: PROPOFOL 10MG/ML 50ML 50 ML IV PRN (22:00)
[2024-12-15] MEDS ORDERED: NOREPINEPHRINE 32 MG in IV NS 0.9% 218 ML IV PRN (22:00)
[2024-12-15] MEDS: IV NS 0.9% 1,000 ML BAG IV ONE (22:18)
[2024-12-15] MEDS ORDERED: DEXTROSE 50%-WATER 50 ML DISP.SYRIN IV PRN (22:30)
[2024-12-15] MEDS ORDERED: CEFEPIME 1 GM VIAL ONE (22:41)
[2024-12-15] MEDS: CEFEPIME 1 GM in IV D5W 50 ML IV SCH (22:46)
[2024-12-15 23:03] LABS: MetHb 0.3 % (0.0-1.5); PEEP,BG 5 cm H2O; SITE, ABG RIGHT RADIAL; VT, ABG 500 mL
[2024-12-15] MEDS: PROPOFOL 10MG/ML 50ML 50 ML IV PRN (23:11)
[2024-12-15] MEDS ORDERED: NOREPINEPHRINE 8 MG in IV D5W 242 ML IV PRN (23:30)
[2024-12-15] MEDS: PROPOFOL 100 ML IV PRN (23:35)
[2024-12-15 23:43] VITALS: BP 124/57; TEMP 100.3; O2SAT 99
[2024-12-15] MEDS: IV NS 0.9% 1,000 ML IV PRN (23:52)
[2024-12-15] MEDS: ATORVASTATIN 10 MG TABLET PO SCH (23:53)
[2024-12-16] VITALS (36 sets, daily range): BP systolic 99–162; BP diastolic 48–94; TEMP 98.1–100.3; O2SAT 93–100
[2024-12-16] MEDS ORDERED: NOREPINEPHRINE 8 MG in IV D5W 242 ML IV PRN
[2024-12-16] MEDS: PROPOFOL 10MG/ML 50ML 50 ML IV PRN (00:23)
[2024-12-16] MEDS: VANCOMYCIN 1 GM /D5W 250 ML PB IV ONE (00:25)
[2024-12-16] MEDS: VANCOMYCIN 1.5 GM in IV D5W 500 ML IV ONE (00:26)
[2024-12-16] MEDS ORDERED: ALBUTEROL FS 2.5 MG/3 ML VIAL.NEB NEB SCH ×2 (00:30→01:30)
[2024-12-16] MEDS ORDERED: IPRATROPIUM NEB FS 0.5 MG/2.5 ML AMPUL.NEB NEB SCH (00:30)
[2024-12-16] MEDS: ALBUTEROL FS 2.5 MG/3 ML VIAL.NEB NEB SCH (01:18)
[2024-12-16] MEDS: IPRATROPIUM NEB FS 0.5 MG/2.5 ML AMPUL.NEB NEB SCH (01:18)
[2024-12-16 04:23] LABS: BASOPHILS % (AUTO) 0.4 % (0.0-2.0); EOSINOPHILS % (AUTO) 0.1 % (0.0-6.0); HEMATOCRIT 30 % (33-45); HEMOGLOBIN 9.7 g/dL (11.5-14.8); LYMPHOCYTES # (AUTO) 1.7 K/uL (0.8-4.8); LYMPHOCYTES % (AUTO) 16.2 % (20.0-44.0); MEAN CORPUSCULAR HEMOGLOBIN 30 PG (26.0-33.0); MEAN CORPUSCULAR HGB CONC 33 g/dl (31.0-36.0); MEAN CORPUSCULAR VOLUME 91 fL (82-100); MONOCYTES # (AUTO) 1.5 K/uL (0.1-1.30); MONOCYTES % (AUTO) 14.3 % (2.0-12.0); NEUTROPHILS # (AUTO) 7.1 K/uL (1.8-8.9); PLATELET COUNT (AUTO) 200 K/uL (150-450); RED BLOOD CELL COUNT(AUTO) 3.27 MIL/uL (4.0-5.2); RED CELL DISTRIBUTION WIDTH 14.5 % (11.5-15.0); WHITE BLOOD COUNT (AUTO) 10.3 K/uL (4.3-11.0)
[2024-12-16 04:29] LABS: ALBUMIN 2.4 g/dL (3.4-5.0); BILIRUBIN,TOTAL 0.3 mg/dL (0.2-1.0); CALCIUM, SERUM 7.4 mg/dL (8.5-10.1); CREATININE 0.8 mg/dL (0.6-1.3); MAGNESIUM 1.8 mg/dL (1.8-2.4); PHOSPHORUS 2.1 mg/dL (2.5-4.9); POTASSIUM 4.3 mmol/L (3.5-5.1); TOTAL PROTEIN, SERUM 6.3 g/dL (6.4-8.2)
[2024-12-16] MEDS ORDERED: CEFEPIME 2 GM in IV D5W 100 ML IV SCH (05:00)
[2024-12-16 05:13] LABS: ABG BASE EXCESS 5.9 mmol/L (-2.0-3.0); ABG OXYGEN SATURATION 96.9 % (94.0-98.0); ABG PCO2 52.8 mmHg (32.0-45.0); ABG PH 7.398 (7.350-7.450); ABG PO2 88.7 mmHg (83.0-108.0); ABG TOTAL HEMOGLOBIN 10.7 G/dL (12.0-16.0); COHb 0.3 % (0.5-1.5); O2Hb 96.3 % (94.0-97.0)
[2024-12-16] MEDS: methylPREDNISolone SOD SUCC 40 MG/ML VIAL IV SCH (05:14)
[2024-12-16] MEDS: BLOOD SUGAR DIAGNOSTIC 1 EACH STRIP IN SCH ×2 (08:14→17:35)
[2024-12-16] MEDS: CARVEDILOL 3.125 MG TABLET PO SCH (08:24)
[2024-12-16] MEDS: LOSARTAN POTASSIUM 25 MG TABLET PO SCH (08:24)
[2024-12-16] MEDS: ASPIRIN EC 81 MG TABLET.DR PO SCH (08:24)
[2024-12-16] MEDS: DOCUSATE SODIUM 100 MG CAPSULE PO SCH (08:24)
[2024-12-16] MEDS ORDERED: GUAI100S9 PO (08:25)
[2024-12-16] MEDS ORDERED: DILT30TA14 PO (08:25)
[2024-12-16] MEDS ORDERED: PYRI50TA15 PO (08:25)
[2024-12-16] MEDS ORDERED: PANT40TA2 PO (08:25)
[2024-12-16] MEDS ORDERED: CALC-1276 PO (08:25)
[2024-12-16] MEDS ORDERED: INSU100I4 SQ (08:25)
[2024-12-16] MEDS ORDERED: APIX5TAB PO (08:25)
[2024-12-16] MEDS ORDERED: DIGO125T PO (08:25)
[2024-12-16] MEDS ORDERED: DRON400T6 PO (08:25)
[2024-12-16] MEDS ORDERED: CRAN425C6 PO (08:25)
[2024-12-16] MEDS ORDERED: MELA5TAB PO (08:25)
[2024-12-16] MEDS ORDERED: ASCO-352 PO (08:25)
[2024-12-16] MEDS ORDERED: HYDR-4076 PO (08:25)
[2024-12-16] MEDS ORDERED: MULT-213 PO (08:25)
[2024-12-16] MEDS ORDERED: DOCU100T2 PO (08:25)
[2024-12-16] MEDS ORDERED: METF-440 PO (08:25)
[2024-12-16] MEDS ORDERED: Medication Not On Formulary EA (Cranberry Extract (Cranberry) 425 MG) PO SCH (09:00)
[2024-12-16] MEDS: PANTOPRAZOLE 40 MG VIAL IV SCH (09:24)
[2024-12-16] MEDS: ENOXAPARIN SODIUM 40 MG/0.4 ML DISP.SYRIN SQ SCH (09:26)
[2024-12-16] MEDS: CEFEPIME 2 GM in IV D5W 100 ML IV SCH (09:27)
[2024-12-16] MEDS ORDERED: CEFEPIME 1 GM in IV D5W 50 ML IV SCH ×2 (10:00)
[2024-12-16] MEDS ORDERED: ETOMIDATE 2 MG/ML VIAL IV ONE (11:29)
[2024-12-16] MEDS: VANCOMYCIN 750 MG in IV D5W 250 ML IV SCH (12:40)
[2024-12-16] MEDS: INSULIN REGULAR, HUMAN 100 UNIT/ML 3 ML VIAL SQ PRN (12:46)
[2024-12-16] MEDS: Sodium Phosphate 15 MMOL in IV NS 0.9% 245 ML IV SCH (17:28)
[2024-12-17] VITALS (36 sets, daily range): BP systolic 107–167; BP diastolic 57–117; TEMP 97.6–99.1; O2SAT 90–100
[2024-12-17 04:50] LABS: BASOPHILS % (AUTO) 0.2 % (0.0-2.0); HEMATOCRIT 31 % (33-45); HEMOGLOBIN 10.1 g/dL (11.5-14.8); LYMPHOCYTES # (AUTO) 1.2 K/uL (0.8-4.8); LYMPHOCYTES % (AUTO) 10.8 % (20.0-44.0); MEAN CORPUSCULAR HEMOGLOBIN 29 PG (26.0-33.0); MEAN CORPUSCULAR HGB CONC 33 g/dl (31.0-36.0); MEAN CORPUSCULAR VOLUME 90 fL (82-100); MONOCYTES # (AUTO) 0.6 K/uL (0.1-1.30); MONOCYTES % (AUTO) 5.9 % (2.0-12.0); NEUTROPHILS % (AUTO) 83.1 % (43.0-81.0); PLATELET COUNT (AUTO) 203 K/uL (150-450); RED BLOOD CELL COUNT(AUTO) 3.46 MIL/uL (4.0-5.2); WHITE BLOOD COUNT (AUTO) 10.8 K/uL (4.3-11.0)
[2024-12-17 04:56] LABS: CALCIUM, SERUM 7.3 mg/dL (8.5-10.1); CARBON DIOXIDE 30 mmol/L (21-32); CHLORIDE 109 mmol/L (98-107); CREATININE 0.7 mg/dL (0.6-1.3); GLUCOSE 204 mg/dL (74-106); MAGNESIUM 2.1 mg/dL (1.8-2.4); PHOSPHORUS 2.7 mg/dL (2.5-4.9); POTASSIUM 3.4 mmol/L (3.5-5.1); SODIUM SERUM 147 mmol/L (136-145); UREA NITROGEN, BLOOD 16 mg/dL (7-18)
[2024-12-17] MEDS: POTASSIUM CL. PREMIX PERIPHER. 50 ML IV SCH (07:54)
[2024-12-17] MEDS ORDERED: DC PROPOFOL WHEN EXTUBATED XX PRN (08:00)
[2024-12-17 08:57] LABS: ABG BASE EXCESS -1.1 mmol/L (-2.0-3.0); ABG OXYGEN SATURATION 97.3 % (94.0-98.0); ABG PCO2 49.4 mmHg (32.0-45.0); ABG PH 7.327 (7.350-7.450); ABG PO2 97.2 mmHg (83.0-108.0); ABG TOTAL HEMOGLOBIN 11.4 G/dL (12.0-16.0); COHb 0.5 % (0.5-1.5); O2Hb 96.8 % (94.0-97.0); SITE, ABG RIGHT RADIAL; VT, ABG 500 mL
[2024-12-17] MEDS ORDERED: POTASSIUM CL. PREMIX PERIPHER. 50 ML IV SCH (09:00)
[2024-12-17] MEDS ORDERED: ACETAMINOPHEN 325 MG TABLET PO PRN (09:00)
[2024-12-17] MEDS: DIGOXIN 0.125 MG TABLET PO SCH (09:54)
[2024-12-17] MEDS: DILTIAZEM HCL 30 MG TABLET PO SCH (09:55)
[2024-12-17] MEDS: PANTOPRAZOLE 40 MG/PACK PACK GT SCH (09:55)
[2024-12-17] MEDS: APIXABAN 5 MG TABLET PO SCH (09:59)
[2024-12-17] MEDS: DRONEDARONE HYDROCHLORIDE 400 MG TABLET PO SCH (10:36)
[2024-12-17 11:29] LABS: ABG BASE EXCESS 0.5 mmol/L (-2.0-3.0); ABG OXYGEN SATURATION 97.5 % (94.0-98.0); ABG PCO2 45.1 mmHg (32.0-45.0); ABG PH 7.377 (7.350-7.450); ABG PO2 96.1 mmHg (83.0-108.0); ABG TOTAL HEMOGLOBIN 10.8 G/dL (12.0-16.0); COHb 0.1 % (0.5-1.5); MetHb 0.3 % (0.0-1.5); O2Hb 97.1 % (94.0-97.0); SITE, ABG RIGHT RADIAL
[2024-12-18] VITALS (27 sets, daily range): BP systolic 110–190; BP diastolic 58–148; TEMP 97.9–98.8; O2SAT 94–100
[2024-12-18 00:23] LABS: COHb 0.3 % (0.5-1.5); MetHb 0.2 % (0.0-1.5)
[2024-12-18] MEDS ORDERED: PROPOFOL 10MG/ML 50ML 50 ML IV PRN (00:30)
[2024-12-18 01:42] LABS: ABG BASE EXCESS 0.3 mmol/L (-2.0-3.0); ABG OXYGEN SATURATION 99.7 % (94.0-98.0); ABG PCO2 75.1 mmHg (32.0-45.0); ABG PH 7.214 (7.350-7.450); ABG PO2 456.1 mmHg (83.0-108.0); ABG TOTAL HEMOGLOBIN 11.4 G/dL (12.0-16.0); O2Hb 99.2 % (94.0-97.0); PEEP,BG 5 cm H2O; SITE, ABG RIGHT BRACHIAL; VT, ABG 500 mL
[2024-12-18 04:41] LABS: BASOPHILS % (AUTO) 0.1 % (0.0-2.0); HEMATOCRIT 30 % (33-45); HEMOGLOBIN 9.7 g/dL (11.5-14.8); LYMPHOCYTES # (AUTO) 0.7 K/uL (0.8-4.8); LYMPHOCYTES % (AUTO) 5.4 % (20.0-44.0); MEAN CORPUSCULAR HEMOGLOBIN 29 PG (26.0-33.0); MEAN CORPUSCULAR HGB CONC 32 g/dl (31.0-36.0); MEAN CORPUSCULAR VOLUME 91 fL (82-100); MONOCYTES % (AUTO) 7.5 % (2.0-12.0); NEUTROPHILS # (AUTO) 11.9 K/uL (1.8-8.9); PLATELET COUNT (AUTO) 210 K/uL (150-450); RED BLOOD CELL COUNT(AUTO) 3.33 MIL/uL (4.0-5.2); RED CELL DISTRIBUTION WIDTH 14.7 % (11.5-15.0); WHITE BLOOD COUNT (AUTO) 13.7 K/uL (4.3-11.0)
[2024-12-18 04:46] LABS: CALCIUM, SERUM 7.3 mg/dL (8.5-10.1); CREATININE 0.7 mg/dL (0.6-1.3); POTASSIUM 4.5 mmol/L (3.5-5.1)
[2024-12-18] MEDS: PANTOPRAZOLE 40 MG VIAL IV SCH (08:28)
[2024-12-18 08:53] LABS: ABG BASE EXCESS 1.4 mmol/L (-2.0-3.0); ABG OXYGEN SATURATION 90.7 % (94.0-98.0); ABG PCO2 49.4 mmHg (32.0-45.0); ABG PH 7.361 (7.350-7.450); ABG PO2 57.6 mmHg (83.0-108.0); ABG TOTAL HEMOGLOBIN 11.1 G/dL (12.0-16.0); COHb 0.1 % (0.5-1.5); MetHb 0.3 % (0.0-1.5); O2Hb 90.3 % (94.0-97.0); PEEP,BG 5 cm H2O; SITE, ABG RIGHT RADIAL; VT, ABG 500 mL
[2024-12-18 11:21] LABS: FERRITIN 264 ng/mL (8-388)
[2024-12-18] MEDS: FUROSEMIDE 40 MG/4 ML VIAL IV SCH (15:37)
[2024-12-18] MEDS ORDERED: ETOMIDATE 2 MG/ML VIAL IV ONE (16:00)
[2024-12-18] MEDS: PROPOFOL 100 ML IV PRN (21:44)
[2024-12-19] VITALS (25 sets, daily range): BP systolic 102–171; BP diastolic 54–89; TEMP 97.7–98.5; O2SAT 92–100
[2024-12-19 05:50] LABS: BASOPHILS % (AUTO) 0.1 % (0.0-2.0); HEMATOCRIT 30 % (33-45); HEMOGLOBIN 10.1 g/dL (11.5-14.8); LYMPHOCYTES # (AUTO) 1.3 K/uL (0.8-4.8); LYMPHOCYTES % (AUTO) 13.6 % (20.0-44.0); MEAN CORPUSCULAR HEMOGLOBIN 29 PG (26.0-33.0); MEAN CORPUSCULAR HGB CONC 33 g/dl (31.0-36.0); MEAN CORPUSCULAR VOLUME 88 fL (82-100); MONOCYTES # (AUTO) 0.9 K/uL (0.1-1.30); MONOCYTES % (AUTO) 8.9 % (2.0-12.0); NEUTROPHILS # (AUTO) 7.4 K/uL (1.8-8.9); NEUTROPHILS % (AUTO) 77.4 % (43.0-81.0); PLATELET COUNT (AUTO) 237 K/uL (150-450); RED BLOOD CELL COUNT(AUTO) 3.44 MIL/uL (4.0-5.2); RED CELL DISTRIBUTION WIDTH 14.4 % (11.5-15.0); WHITE BLOOD COUNT (AUTO) 9.6 K/uL (4.3-11.0)
[2024-12-19 06:24] LABS: CREATININE 0.8 mg/dL (0.6-1.3); POTASSIUM 3.5 mmol/L (3.5-5.1)
[2024-12-19 07:22] LABS: CALCIUM, SERUM 7.7 mg/dL (8.5-10.1)
[2024-12-19 08:20] LABS: ABG BASE EXCESS 7.5 mmol/L (-2.0-3.0); ABG PCO2 48.7 mmHg (32.0-45.0); ABG PH 7.448 (7.350-7.450); ABG PO2 52.4 mmHg (83.0-108.0); ABG TOTAL HEMOGLOBIN 9.2 G/dL (12.0-16.0); MetHb 0.3 % (0.0-1.5); O2Hb 86.3 % (94.0-97.0); PEEP,BG 5 cm H2O; SITE, ABG RIGHT RADIAL; VT, ABG 500 mL
[2024-12-19] MEDS: IV NS 0.9% 250 ML IV PRN (12:22)
[2024-12-19] MEDS: MORPHINE SULFATE INJ 2 MG/ML DISP.SYRIN IV PRN (14:28)
[2024-12-19] MEDS: MUPIROCIN OINT 2% 22 GM TUBE NS SCH (17:24)
[2024-12-19 17:27] LABS: IRON, SERUM 40 ug/dl (50-175); TOTAL IRON BINDING CAPACITY 190 ug/dl (250-450)
[2024-12-20] VITALS (30 sets, daily range): BP systolic 111–168; BP diastolic 55–116; TEMP 97.9–98.6; O2SAT 88–100
[2024-12-20 05:13] LABS: BASOPHILS % (AUTO) 0.2 % (0.0-2.0); HEMATOCRIT 31 % (33-45); HEMOGLOBIN 10.4 g/dL (11.5-14.8); LYMPHOCYTES # (AUTO) 1.2 K/uL (0.8-4.8); LYMPHOCYTES % (AUTO) 14.8 % (20.0-44.0); MEAN CORPUSCULAR HEMOGLOBIN 29 PG (26.0-33.0); MEAN CORPUSCULAR HGB CONC 34 g/dl (31.0-36.0); MEAN CORPUSCULAR VOLUME 88 fL (82-100); MONOCYTES # (AUTO) 0.7 K/uL (0.1-1.30); MONOCYTES % (AUTO) 8.6 % (2.0-12.0); NEUTROPHILS # (AUTO) 6.4 K/uL (1.8-8.9); NEUTROPHILS % (AUTO) 76.4 % (43.0-81.0); PLATELET COUNT (AUTO) 251 K/uL (150-450); RED BLOOD CELL COUNT(AUTO) 3.53 MIL/uL (4.0-5.2); RED CELL DISTRIBUTION WIDTH 14.2 % (11.5-15.0); WHITE BLOOD COUNT (AUTO) 8.4 K/uL (4.3-11.0)
[2024-12-20 05:32] LABS: CALCIUM, SERUM 8.1 mg/dL (8.5-10.1); CREATININE 0.9 mg/dL (0.6-1.3); POTASSIUM 3.7 mmol/L (3.5-5.1)
[2024-12-20 09:42] LABS: ABG BASE EXCESS 3.2 mmol/L (-2.0-3.0); ABG OXYGEN SATURATION 95.5 % (94.0-98.0); ABG PCO2 53.7 mmHg (32.0-45.0); ABG PH 7.359 (7.350-7.450); ABG PO2 87.2 mmHg (83.0-108.0); ABG TOTAL HEMOGLOBIN 11.8 G/dL (12.0-16.0); COHb 0.3 % (0.5-1.5); O2Hb 95.2 % (94.0-97.0); PEEP,BG 5 cm H2O; SITE, ABG LEFT RADIAL; VT, ABG 500 mL
[2024-12-20 13:16] LABS: ABG BASE EXCESS 7.7 mmol/L (-2.0-3.0); ABG OXYGEN SATURATION 94.9 % (94.0-98.0); ABG PCO2 52.4 mmHg (32.0-45.0); ABG PH 7.422 (7.350-7.450); ABG PO2 77.5 mmHg (83.0-108.0); ABG TOTAL HEMOGLOBIN 11.1 G/dL (12.0-16.0); COHb 0.3 % (0.5-1.5); MetHb 0.3 % (0.0-1.5); O2Hb 94.3 % (94.0-97.0); SITE, ABG LEFT RADIAL
[2024-12-21] VITALS (23 sets, daily range): BP systolic 107–155; BP diastolic 53–98; TEMP 98.1–98.6; O2SAT 93–100
[2024-12-21 05:50] LABS: BASOPHILS % (AUTO) 0.1 % (0.0-2.0); HEMATOCRIT 31 % (33-45); HEMOGLOBIN 10.4 g/dL (11.5-14.8); LYMPHOCYTES # (AUTO) 1.1 K/uL (0.8-4.8); LYMPHOCYTES % (AUTO) 13.6 % (20.0-44.0); MEAN CORPUSCULAR HEMOGLOBIN 30 PG (26.0-33.0); MEAN CORPUSCULAR HGB CONC 34 g/dl (31.0-36.0); MEAN CORPUSCULAR VOLUME 88 fL (82-100); MONOCYTES # (AUTO) 0.7 K/uL (0.1-1.30); MONOCYTES % (AUTO) 8.8 % (2.0-12.0); NEUTROPHILS # (AUTO) 6.5 K/uL (1.8-8.9); NEUTROPHILS % (AUTO) 77.5 % (43.0-81.0); PLATELET COUNT (AUTO) 246 K/uL (150-450); RED CELL DISTRIBUTION WIDTH 14.2 % (11.5-15.0); WHITE BLOOD COUNT (AUTO) 8.4 K/uL (4.3-11.0)
[2024-12-21 05:57] LABS: CALCIUM, SERUM 7.9 mg/dL (8.5-10.1); CARBON DIOXIDE 32 mmol/L (21-32); CHLORIDE 105 mmol/L (98-107); CREATININE 0.5 mg/dL (0.6-1.3); GLUCOSE 144 mg/dL (74-106); MAGNESIUM 2.1 mg/dL (1.8-2.4); PHOSPHORUS 3.3 mg/dL (2.5-4.9); POTASSIUM 3.9 mmol/L (3.5-5.1); SODIUM SERUM 143 mmol/L (136-145); UREA NITROGEN, BLOOD 22 mg/dL (7-18)
[2024-12-21] MEDS: ACETYLCYSTEINE 10% SOLN 400 MG/4 ML VIAL NEB SCH (09:00)
[2024-12-21] MEDS: IPRATROPIUM NEB FS 0.5 MG/2.5 ML AMPUL.NEB NEB PRN (11:41)
[2024-12-21] MEDS: ALBUTEROL FS 2.5 MG/3 ML VIAL.NEB NEB SCH (11:41)
[2024-12-22] VITALS (15 sets, daily range): BP systolic 111–150; BP diastolic 57–75; TEMP 98–99.1; O2SAT 92–99
[2024-12-22 07:13] LABS: BASOPHILS % (AUTO) 0.2 % (0.0-2.0); HEMATOCRIT 30 % (33-45); HEMOGLOBIN 10.2 g/dL (11.5-14.8); LYMPHOCYTES # (AUTO) 0.9 K/uL (0.8-4.8); LYMPHOCYTES % (AUTO) 12.1 % (20.0-44.0); MEAN CORPUSCULAR HEMOGLOBIN 30 PG (26.0-33.0); MEAN CORPUSCULAR HGB CONC 34 g/dl (31.0-36.0); MEAN CORPUSCULAR VOLUME 88 fL (82-100); MONOCYTES # (AUTO) 0.4 K/uL (0.1-1.30); MONOCYTES % (AUTO) 6.2 % (2.0-12.0); NEUTROPHILS # (AUTO) 5.7 K/uL (1.8-8.9); NEUTROPHILS % (AUTO) 81.5 % (43.0-81.0); PLATELET COUNT (AUTO) 268 K/uL (150-450); RED BLOOD CELL COUNT(AUTO) 3.38 MIL/uL (4.0-5.2)
[2024-12-22 08:20] LABS: CALCIUM, SERUM 8.7 mg/dL (8.5-10.1); CREATININE 0.7 mg/dL (0.6-1.3); PHOSPHORUS 3.2 mg/dL (2.5-4.9); POTASSIUM 4.4 mmol/L (3.5-5.1)
[2024-12-22 09:05] LABS: ABG BASE EXCESS 6.1 mmol/L (-2.0-3.0); ABG OXYGEN SATURATION 92.8 % (94.0-98.0); ABG PCO2 48.6 mmHg (32.0-45.0); ABG PH 7.428 (7.350-7.450); ABG PO2 64.3 mmHg (83.0-108.0); ABG TOTAL HEMOGLOBIN 11.3 G/dL (12.0-16.0); COHb 0.3 % (0.5-1.5); MetHb 0.3 % (0.0-1.5); O2Hb 92.2 % (94.0-97.0); SITE, ABG RIGHT RADIAL
[2024-12-22 12:25] LABS: THYROID STIMULATING HORMONE 0.41 uIU/mL (0.358-3.74)
[2024-12-23] VITALS (13 sets, daily range): BP systolic 108–130; BP diastolic 49–61; TEMP 97.5–99; O2SAT 93–99
[2024-12-23 07:09] LABS: BASOPHILS % (AUTO) 0.1 % (0.0-2.0); EOSINOPHILS % (AUTO) 0.1 % (0.0-6.0); HEMATOCRIT 28 % (33-45); HEMOGLOBIN 9.6 g/dL (11.5-14.8); LYMPHOCYTES # (AUTO) 0.8 K/uL (0.8-4.8); LYMPHOCYTES % (AUTO) 8.9 % (20.0-44.0); MEAN CORPUSCULAR HEMOGLOBIN 30 PG (26.0-33.0); MEAN CORPUSCULAR HGB CONC 34 g/dl (31.0-36.0); MEAN CORPUSCULAR VOLUME 88 fL (82-100); MONOCYTES # (AUTO) 0.6 K/uL (0.1-1.30); MONOCYTES % (AUTO) 6.6 % (2.0-12.0); NEUTROPHILS # (AUTO) 7.6 K/uL (1.8-8.9); NEUTROPHILS % (AUTO) 84.3 % (43.0-81.0); PLATELET COUNT (AUTO) 295 K/uL (150-450); RED BLOOD CELL COUNT(AUTO) 3.19 MIL/uL (4.0-5.2)
[2024-12-23 08:03] LABS: CALCIUM, SERUM 8.1 mg/dL (8.5-10.1); CREATININE 0.7 mg/dL (0.6-1.3); PHOSPHORUS 3.2 mg/dL (2.5-4.9); POTASSIUM 4.4 mmol/L (3.5-5.1)
[2024-12-23] MEDS: PANTOPRAZOLE 40 MG TABLET.DR PO SCH (08:39)
[2024-12-23 09:15] LABS: ABG BASE EXCESS 2.6 mmol/L (-2.0-3.0); ABG OXYGEN SATURATION 94.5 % (94.0-98.0); ABG PCO2 45.8 mmHg (32.0-45.0); ABG PH 7.401 (7.350-7.450); ABG PO2 74.4 mmHg (83.0-108.0); ABG TOTAL HEMOGLOBIN 10.9 G/dL (12.0-16.0); COHb 0.3 % (0.5-1.5); MetHb 0.3 % (0.0-1.5); O2Hb 93.9 % (94.0-97.0); SITE, ABG RIGHT RADIAL
[2024-12-24] VITALS (13 sets, daily range): BP systolic 107–125; BP diastolic 51–63; TEMP 97.6–99; O2SAT 92–99
[2024-12-24 01:08] LABS: FOLIC ACID 15.1 ng/mL (>3.0)
[2024-12-24 06:48] LABS: BASOPHILS % (AUTO) 0.1 % (0.0-2.0); EOSINOPHILS % (AUTO) 0.2 % (0.0-6.0); HEMATOCRIT 30 % (33-45); HEMOGLOBIN 9.9 g/dL (11.5-14.8); LYMPHOCYTES % (AUTO) 18.3 % (20.0-44.0); MEAN CORPUSCULAR HEMOGLOBIN 29 PG (26.0-33.0); MEAN CORPUSCULAR HGB CONC 33 g/dl (31.0-36.0); MEAN CORPUSCULAR VOLUME 89 fL (82-100); MONOCYTES # (AUTO) 1.6 K/uL (0.1-1.30); MONOCYTES % (AUTO) 14.7 % (2.0-12.0); NEUTROPHILS # (AUTO) 7.2 K/uL (1.8-8.9); NEUTROPHILS % (AUTO) 66.7 % (43.0-81.0); PLATELET COUNT (AUTO) 337 K/uL (150-450); RED CELL DISTRIBUTION WIDTH 14.4 % (11.5-15.0); WHITE BLOOD COUNT (AUTO) 10.8 K/uL (4.3-11.0)
[2024-12-24 07:31] LABS: CALCIUM, SERUM 8.2 mg/dL (8.5-10.1); CREATININE 0.6 mg/dL (0.6-1.3); POTASSIUM 4.3 mmol/L (3.5-5.1)
[2024-12-24] MEDS: methylPREDNISolone SOD SUCC 40 MG/ML VIAL IV SCH (08:33)
[2024-12-25] VITALS (13 sets, daily range): BP systolic 111–137; BP diastolic 52–60; TEMP 97.5–98; O2SAT 92–99
[2024-12-25 07:06] LABS: CREATININE 0.6 mg/dL (0.6-1.3); POTASSIUM 4.3 mmol/L (3.5-5.1)
[2024-12-25 07:41] LABS: BASOPHILS % (AUTO) 0.2 % (0.0-2.0); EOSINOPHILS # (AUTO) 0.1 K/uL (0.0-0.7); EOSINOPHILS % (AUTO) 0.6 % (0.0-6.0); HEMATOCRIT 30 % (33-45); LYMPHOCYTES # (AUTO) 2.7 K/uL (0.8-4.8); LYMPHOCYTES % (AUTO) 25.2 % (20.0-44.0); MEAN CORPUSCULAR HEMOGLOBIN 30 PG (26.0-33.0); MEAN CORPUSCULAR HGB CONC 33 g/dl (31.0-36.0); MEAN CORPUSCULAR VOLUME 89 fL (82-100); MONOCYTES # (AUTO) 1.3 K/uL (0.1-1.30); MONOCYTES % (AUTO) 12.3 % (2.0-12.0); NEUTROPHILS # (AUTO) 6.5 K/uL (1.8-8.9); NEUTROPHILS % (AUTO) 61.7 % (43.0-81.0); PLATELET COUNT (AUTO) 352 K/uL (150-450); RED BLOOD CELL COUNT(AUTO) 3.36 MIL/uL (4.0-5.2); RED CELL DISTRIBUTION WIDTH 14.2 % (11.5-15.0); WHITE BLOOD COUNT (AUTO) 10.6 K/uL (4.3-11.0)
[2024-12-25] MEDS: ONDANSETRON HCL/PF 4 MG/2 ML VIAL IVP PRN (09:37)
[2024-12-25] MEDS: MAGNESIUM HYDROXIDE 30 ML UDC PO PRN (18:35)
[2024-12-26] VITALS (9 sets, daily range): BP systolic 97–121; BP diastolic 44–64; TEMP 97.7–98.4; O2SAT 95–100
[2024-12-26] MEDS: ACETAMINOPHEN 325 MG TABLET PO PRN (08:37)
[2024-12-26] MEDS: predniSONE 20 MG TABLET PO SCH (08:39)
[2024-12-26] MEDS ORDERED: PRED20TA PO (09:30)
[2024-12-27 16:11] LABS: VITAMIN B1 THIAMINE,WB 106.9 nmol/L (66.5-200.0)
== END 2024-12-26 15:55 | DRG 871 ==
LOC: ER 18:44 → ICU 22:56 → TELE-TD 12-21 09:16 → TELE1 12-22 09:37
PROVIDERS: ADMIT Nurse Practitioner Acute Care; ATTEND Internal Medicine
PROC: 5A1945Z Respiratory Ventilation, 24-96 Consecutive Hours (ICD-10-PCS; principal; 2024-12-15)
PROC: 0BH17EZ Insertion of Endotracheal Airway into Trachea, Via Natural or Artificial Opening (ICD-10-PCS; 2024-12-15)
PROC: 0BH17EZ Insertion of Endotracheal Airway into Trachea, Via Natural or Artificial Opening (ICD-10-PCS; 2024-12-18)
PROC: 5A1945Z Respiratory Ventilation, 24-96 Consecutive Hours (ICD-10-PCS; 2024-12-18)
PROC: 5A09457 Assistance with Respiratory Ventilation, 24-96 Consecutive Hours, Continuous Positive Airway Pressure (ICD-10-PCS; 2024-12-23)
DX: A41.9 Sepsis, unspecified organism (principal); G92.8 Other toxic encephalopathy; I21.A1 Myocardial infarction type 2; J96.21 Acute and chronic respiratory failure with hypoxia; J96.22 Acute and chronic respiratory failure with hypercapnia; R65.21 Severe sepsis with septic shock; J44.1 Chronic obstructive pulmonary disease with (acute) exacerbation; N39.0 Urinary tract infection, site not specified; I48.20 Chronic atrial fibrillation, unspecified; J44.0 Chronic obstructive pulmonary disease with (acute) lower respiratory infection; E44.1 Mild protein-calorie malnutrition; Z20.822 Contact with and (suspected) exposure to COVID-19; I10 Essential (primary) hypertension; E78.5 Hyperlipidemia, unspecified; J43.9 Emphysema, unspecified; Z79.01 Long term (current) use of anticoagulants; Z79.82 Long term (current) use of aspirin; Z79.51 Long term (current) use of inhaled steroids; B96.89 Other specified bacterial agents as the cause of diseases classified elsewhere; R79.89 Other specified abnormal findings of blood chemistry; K21.9 Gastro-esophageal reflux disease without esophagitis; Z96.651 Presence of right artificial knee joint; Z99.81 Dependence on supplemental oxygen; Z87.01 Personal history of pneumonia (recurrent); L89.159 Pressure ulcer of sacral region, unspecified stage; E88.09 Other disorders of plasma-protein metabolism, not elsewhere classified; E66.9 Obesity, unspecified; I25.2 Old myocardial infarction; E11.9 Type 2 diabetes mellitus without complications; Z68.27 Body mass index [BMI] 27.0-27.9, adult
CPT/HCPCS: 31720; 36415; 36600; 70450-TC; 71045-TC; 80048-TC; 80053-TC; 80076-TC; 80202-TC; 81001; 82140-TC; 82607-TC; 82728-TC; 82803-TC; 82962-TC; 83540-TC; 83735-TC; 83921; 84100-TC; 84425; 84443-TC; 84478-TC; 84484-TC; 85025-TC; 85730-TC; 87040-TC; 87081-TC; 87086-TC; 92526; 92611-TC; 93307-TC; 94002-TC; 94003-TC; 94660; 94760-TC; 94762-TC; 94799-TC; A4223; A9563; G0378; G0480; J0692; J1650; J1815; J1940; J2270; J2405; J2470; J2919; J3370; J3371; J3480; J3490; J7030; J7050; J7060